=== PATIENT | female | born 1945 | race Caucasian/White ===

== ENCOUNTER 2018-08-12 01:31 | Inpatient (IN) | payer MEDICARE, MEDICAID ==
[~2018-08-12] VITALS: Ht 162.6 cm; Wt 88.0 kg
[2018-08-12] MEDS ORDERED: DOXE25CA PO (01:50)
[2018-08-12] MEDS ORDERED: DOCU-109 PO (01:50)
[2018-08-12] MEDS ORDERED: CHOL500021 PO (01:50)
[2018-08-12] MEDS ORDERED: OLAN2.5T11 PO (01:50)
[2018-08-12] MEDS ORDERED: ZOLP10TA PO (01:50)
[2018-08-12] MEDS ORDERED: CELE200C PO (01:50)
[2018-08-12] MEDS ORDERED: FLUO10CA13 PO (01:50)
[2018-08-12] MEDS ORDERED: ALEN70TA6 PO (01:50)
[2018-08-12] MEDS ORDERED: ASPI325T8 PO (01:50)
[2018-08-12] MEDS ORDERED: FERR325T14 PO (01:50)
[2018-08-12] MEDS ORDERED: OXYC5TAB4 PO (01:56)
[2018-08-12] MEDS ORDERED: LORazepam 0.5 MG TABLET PO PRN (02:00)
[2018-08-12] MEDS ORDERED: METHYL SALICYLATE/MENTHOL TOPICAL OINTMENT 29GM TUBE. TP PRN (02:00)
[2018-08-12] MEDS ORDERED: ACETAMINOPHEN 325 MG TABLET PO PRN (02:00)
[2018-08-12] MEDS ORDERED: MAG HYDROX/AL HYDROX/SIMETH 30 ML ORAL.SUSP PO PRN (02:00)
[2018-08-12] MEDS ORDERED: MAGNESIUM HYDROXIDE 2,400 MG/30 ML ORAL.SUSP. PO PRN (02:00)
[2018-08-12 02:05] VITALS: BP 137/103
[2018-08-12] MEDS: oxyCODONE IR 5 MG TABLET PO PRN ×4 (02:13→20:31)
[2018-08-12] MEDS ORDERED: ZOLPIDEM 5 MG TABLET. PO PRN (02:15)
[2018-08-12] MEDS ORDERED: MINE3.5O29 OP (02:47)
[2018-08-12 07:20] LABS: ALBUMIN 3.4 g/dL (3.4-5.0); ALBUMIN/GLOBULIN RATIO 0.8 (1.0-1.7); CALCIUM 8.6 mg/dL (8.5-10.1); CREATININE 1.1 mg/dL (0.6-1.0); GFR 48.7; MAGNESIUM 1.9 mg/dL (1.8-2.4); POTASSIUM 4.1 mmol/L (3.5-5.1); TOTAL BILIRUBIN 0.4 mg/dL (0.2-1.0); TOTAL PROTEIN 7.6 g/dL (6.4-8.2)
[2018-08-12 07:24] LABS: BASO % 1 % (0-3); EOS # 0.1 x10^3/uL (0.0-0.7); EOS % 2 % (0-3); HEMATOCRIT 34.2 % (36.0-47.0); HEMOGLOBIN 11.2 g/dL (12.0-15.5); LYMPH # 1.5 x10^3/uL (1.0-4.8); LYMPH % 29 % (24-48); MEAN CORPUSCULAR HEMOGLOBIN 30 pg (25-35); MEAN CORPUSCULAR HGB CONC 33 g/dL (31-37); MEAN CORPUSCULAR VOLUME 93 fL (79-100); MONO # 0.5 x10^3/uL (0.0-1.1); MONO % 9 % (0-9); NEUT % 58 % (31-73); PLATELET COUNT 282 x10^3/uL (140-400); RED BLOOD COUNT 3.69 x10^6/uL (3.50-5.40); RED CELL DISTRIBUTION WIDTH 17.7 % (11.5-14.5); WHITE BLOOD COUNT 5.1 x10^3/uL (4.0-11.0)
[2018-08-12] MEDS: CELECOXIB 100 MG CAPSULE PO SCH ×3 (08:15→20:47)
[2018-08-12] MEDS: FLUoxetine HCL 10 MG CAPSULE PO SCH (08:16)
[2018-08-12] MEDS: ASPIRIN 325 MG TABLET PO SCH ×2 (08:16→08:25)
[2018-08-12] MEDS: FERROUS SULFATE 325 MG TABLET. PO SCH ×3 (08:16→20:47)
[2018-08-12] MEDS: DOCUSATE SODIUM 100 MG CAPSULE PO SCH ×4 (08:16→20:47)
[2018-08-12] MEDS ORDERED: DOXEPIN HCL 25 MG CAPSULE PO SCH (09:00)
[2018-08-12 10:16] LABS: THYROID STIM HORMONE (TSH) 1.467 uIU/mL (0.358-3.740)
[2018-08-12 11:10] LABS: THYROXINE 4.7 ug/dL (4.5-12.0)
[2018-08-12 15:33] VITALS: BP 127/81
[2018-08-12] MEDS: OLANZapine 2.5 MG TABLET PO SCH (19:38)
[2018-08-12] MEDS: ZOLPIDEM 5 MG TABLET. PO SCH (20:31)
[2018-08-12] MEDS: DOXEPIN HCL 25 MG CAPSULE PO SCH (20:31)
[2018-08-12] MEDS ORDERED: DOCUSATE SODIUM 100 MG CAPSULE PO PRN (21:00)
[2018-08-12] MEDS: ZOLPIDEM 5 MG TABLET. PO PRN (21:24)
--- NOTE | 2018-08-12 21:53 | PDOC ---
Exam Note: Niko Note: Please also refer to the separate dictated note~for this date of service dictated separately.~Patient seen individually. Discussed the patient with Nursing staff reviewed the chart.~Reviewed interim history and current functioning. Reviewed vital signs,~Labs/ Radiology~and current medications noted below. Continue current treatment with the changes noted in the dictated addendum note Assessment: Vital Signs: Vital Signs Date Time Temp Pulse Resp B/P (MAP) Pulse Ox O2 Delivery O2 Flow Rate FiO2 08/12/18 20:31 97 08/12/18 15:33 97.1 66 18 127/81 (96) 08/12/18 03:25 Room Air Labs: Laboratory Tests Test 08/12/18 06:37 White Blood Count 5.1 x10^3/uL (4.0-11.0) Red Blood Count 3.69 x10^6/uL (3.50-5.40) Hemoglobin 11.2 g/dL (12.0-15.5) L Hematocrit 34.2 % (36.0-47.0) L Mean Corpuscular Volume 93 fL (79-100) Mean Corpuscular Hemoglobin 30 pg (25-35) Mean Corpuscular Hemoglobin Concent 33 g/dL (31-37) Red Cell Distribution Width 17.7 % (11.5-14.5) H Platelet Count 282 x10^3/uL (140-400) Neutrophils (%) (Auto) 58 % (31-73) Lymphocytes (%) (Auto) 29 % (24-48) Monocytes (%) (Auto) 9 % (0-9) Eosinophils (%) (Auto) 2 % (0-3) Basophils (%) (Auto) 1 % (0-3) Neutrophils # (Auto) 3.0 x10^3uL (1.8-7.7) Lymphocytes # (Auto) 1.5 x10^3/uL (1.0-4.8) Monocytes # (Auto) 0.5 x10^3/uL (0.0-1.1) Eosinophils # (Auto) 0.1 x10^3/uL (0.0-0.7) Basophils # (Auto) 0.0 x10^3/uL (0.0-0.2) Sodium Level 141 mmol/L (136-145) Potassium Level 4.1 mmol/L (3.5-5.1) Chloride Level 106 mmol/L (98-107) Carbon Dioxide Level 25 mmol/L (21-32) Anion Gap 10 (6-14) Blood Urea Nitrogen 19 mg/dL (7-20) Creatinine 1.1 mg/dL (0.6-1.0) H Estimated GFR (Cockcroft-Gault) 48.7 BUN/Creatinine Ratio 17 (6-20) Glucose Level 107 mg/dL (70-99) H Calcium Level 8.6 mg/dL (8.5-10.1) Magnesium Level 1.9 mg/dL (1.8-2.4) Iron Level 106 ug/dL (50-170) Total Iron Binding Capacity 288 ug/dL (250-450) Iron Saturation 37 % (15-34) H Total Bilirubin 0.4 mg/dL (0.2-1.0) Aspartate Amino Transferase (AST) 20 U/L (15-37) Alanine Aminotransferase (ALT) 15 U/L (14-59) Alkaline Phosphatase 82 U/L (46-116) Total Protein 7.6 g/dL (6.4-8.2) Albumin 3.4 g/dL (3.4-5.0) Albumin/Globulin Ratio 0.8 (1.0-1.7) L Triglycerides Level 62 mg/dL (0-150) Cholesterol Level 182 mg/dL (0-200) LDL Cholesterol, Calculated 109 mg/dL (0-100) H VLDL Cholesterol, Calculated 12 mg/dL (0-40) Non-HDL Cholesterol Calculated 121 mg/dL (0-129) HDL Cholesterol 61 mg/dL (40-60) H Cholesterol/HDL Ratio 2.0 Thyroid Stimulating Hormone (TSH) 1.467 uIU/mL (0.358-3.740) Thyroxine (T4) 4.7 ug/dL (4.5-12.0) Total Triiodothyronine (TT3) 80 ng/dL (71-180) Current Medications: Meds: Current Medications Acetaminophen (Tylenol) 650 mg PRN Q6HRS PRN PO PAIN / TEMP; Start 08/12/18 at 02:00 Multi-Ingredient Ointment (Analgesic [place]) 1 nicolas PRN QID PRN TP MUSCLE PAIN; Start 08/12/18 at 02:00 Al Hydroxide/Mg Hydroxide (Mylanta Plus Xs) 15 ml PRN AFTMEALHC PRN PO DYSPEPSIA; Start 08/12/18 at 02:00 Magnesium Hydroxide (Milk Of Magnesia) 2,400 mg PRN QHS PRN PO CONSTIPATION; Start 08/12/18 at 02:00 Aspirin (Madina Aspirin) 325 mg DAILY PO ; Start 08/12/18 at 09:00 Vitamin D (Vitamin D3) 50,000 unit WEEKLY PO ; Start 08/14/18 at 09:00 Ferrous Sulfate (Feosol) 325 mg BID PO Last administered on 08/12/18at 08:16; Start 08/12/18 at 09:00 Oxycodone HCl (Roxicodone) 15 mg PRN Q6HRS PRN PO PAIN Last administered on 08/12at 20:31; Start 08/12/18 at 02:00 Alendronate Sodium (Fosamax) 70 mg WEEKLY PO ; Start 08/14/18 at 06:00 Celecoxib (CeleBREX) 200 mg BID PO Last administered on 08/12/18at 08:15; Start 08/12/18 at 09:00 Docusate Sodium (Colace) 100 mg BID PO ; Start 08/12/18 at 09:00; Stop 08/12/18 at 20:49; Status DC Doxepin HCl (SINEquan) 25 mg DAILY PO ; Start 08/12/18 at 09:00; Stop 08/12/18 at 20:49; Status DC Lorazepam (Ativan) 0.25 mg PRN Q2HR PRN PO ANXIETY / AGITATION; Start 08/12/18 at 02:00 Fluoxetine HCl (PROzac) 10 mg DAILY PO Last administered on 08/12/18at 08:16; Start 08/12/18 at 09:00 Olanzapine (ZyPREXA) 2.5 mg QHS PO Last administered on 08/12/18at 19:38; Start 08/12/18 at 21:00 Zolpidem Tartrate (Ambien) 5 mg PRN QHS PRN PO INSOMNIA, MAY REPEAT X1; Start 08/12/18 at 02:15; Stop 08/12/18 at 20:22; Status DC Multi-Ingred Cream/Lotion/Oil/ Oint (Artificial Tears Eye Ointment) 1 nicolas PRN QHS PRN OU DRY EYE; Start 08/12/18 at 03:00 Zolpidem Tartrate (Ambien) 5 mg HS PO Last administered on 08/12/18 20:31; Start 08/12/18 at 21:00 Doxepin HCl (SINEquan) 25 mg QHS PO Last administered on 08/12/18 20:31; Start 08/12/18 at 21:00 Zolpidem Tartrate (Ambien) 5 mg PRN QHS PRN PO CONTINUED INSOMNIA Last administered on 08/12/18 21:24; Start 08/12/18 at 20:30 Docusate Sodium (Colace) 100 mg PRN BID PRN PO CONSTIPATION; Start 08/12/18 at 21:00 Active Scripts Active Reported Lubricant Eye Ointment (Mineral Oil/Petrolatum,White) 3.5 Gm Oint...g. 3.5 Gm OP PRN QHS PRN Oxycodone Hcl Immed.release (Oxycodone Hcl) 5 Mg Tablet 15 Mg PO PRN Q6HRS PRN Ambien (Zolpidem Tartrate) 10 Mg Tablet 10 Mg PO PRN QHS PRN Olanzapine 2.5 Mg Tablet 2.5 Mg PO QHS Prozac (Fluoxetine Hcl) 10 Mg Capsule 10 Mg PO DAILY Ferrous Sulfate 325 Mg Tablet 325 Mg PO BID Doxepin Hcl 25 Mg Capsule 25 Mg PO DAILY Colace (Docusate Sodium) 100 Mg Capsule 100 Mg PO BID D3-50 (Cholecalciferol (Vitamin D3)) 50,000 Unit Capsule 50,000 Unit PO WEEKLY Celebrex (Celecoxib) 200 Mg Capsule 200 Mg PO BID Aspirin 325 Mg Tablet 325 Mg PO DAILY Alendronate Sodium 70 Mg Tablet 70 Mg PO WEEKLY I have reviewed the current psychotropics carefully including drug interactions. Risk benefit ratio favors no change other than as noted in my dictated progress note. Diagnosis: Problems: (1) Anxiety disorder (2) Major depressive disorder, recurrent episode (3) Impulse control disorder LOKESH TUCKER MD Aug 12, 2018 21:53
[2018-08-13] MEDS: oxyCODONE IR 5 MG TABLET PO PRN ×4 (03:54→22:34)
[2018-08-13 05:35] LABS: HEMOGLOBIN A1C 5.3 % (4.8-5.6)
[2018-08-13 06:00] VITALS: BP 102/58
[2018-08-13] MEDS: ASPIRIN 325 MG TABLET PO SCH (08:48)
[2018-08-13] MEDS: FERROUS SULFATE 325 MG TABLET. PO SCH ×3 (08:48→22:09)
[2018-08-13] MEDS: CELECOXIB 100 MG CAPSULE PO SCH ×2 (08:49→21:29)
[2018-08-13] MEDS: FLUoxetine HCL 10 MG CAPSULE PO SCH (08:49)
--- NOTE | 2018-08-13 14:27 | HP ---
ADMIT DATE: 08/12/2018 PSYCHIATRIC ADMISSION HISTORY/EVALUATION IDENTIFYING DATA: The patient is a 73-year-old female referred to us from [facility] where she presented from home with worsening symptoms of depression with suicidal ideation with a plan to walk into traffic or "pay someone to kill her." The patient has failed outpatient psychiatric interventions. The patient lives alone at home in her apartment and rather rough neighborhood and is totally frustrated with her financial insecurity and living arrangements, and states she has been getting progressively more depressed, hopeless, helpless, worthless with a plan to end her life, thus prompting her visit to the Emergency Room and then a referral to us for inpatient psychiatric stabilization. CHIEF COMPLAINT: "I cannot go on like this." HISTORY OF PRESENT ILLNESS: The patient has a long history of depression and past psychiatric hospitalization at [facility]. She states she lives in an apartment at [facility], which was a very rough neighborhood, but that is the only place she can afford to live on her rent of about $350 a month. She states she does not have a car because she cannot afford it, even though she can drive. The patient states she takes public transportation to get her groceries and even that is difficult to obtain, especially given the subzero temperatures in the area. She admits to significant insomnia, feeling hopeless, helpless, worthless, some paranoia. She admits to the above suicidal ideation. No active homicidal ideation. No clear history of bipolar disorder, though she does have a history of mood swings. PAST PSYCHIATRIC HISTORY: She has been inpatient at [facility] and was seen outpatient at the [facility] intermittently. PAST MEDICAL HISTORY: Positive for hypertension, back pain, osteoarthritis, anemia, osteopenia, chronic pain, history of cerebrovascular disease, CVA, CHF, bilateral knee replacement. DRUG ALLERGIES: CLEOCIN, CLINDAMYCIN PHOSPHATE, KEFLEX AND SULFA. FAMILY HISTORY: Noncontributory. SOCIAL HISTORY: The patient states she is single. She states she has 2 master's degrees from the [employer]. The details are unclear. 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 No alcohol or drug abuse history. She states after she completed her education [place] helping take care of her mother who is rather elderly. She has 1 sister who lives out of state and the patient has no contact with the sister. No alcohol or drug abuse, physical, sexual or elder abuse history is noted. She is not known to be a perpetrator. REACTION TO HOSPITALIZATION: The patient accepting of it. ASSETS: Cognitively reasonably intact and intelligent. MENTAL STATUS EXAM: The patient was seen individually on the evening of 08/12/2018. She is quite verbal, open, forthcoming. Mood is depressed. Admits to feeling hopeless, helpless, worthless. Attention span short. Language function intact. Affect is mood congruent. Intellect average. Insight fair. Judgment intact to standard questioning. She denied active suicidal ideation when I questioned her during my initial interview on 08/12/2018. IMPRESSION: Major depressive disorder, recurrent; anxiety disorder, unspecified; rule out bipolar disorder, unspecified. Rest as above. PLAN: Admit to Gerops[facility]iatry Unit at [facility]. I will see the patient daily individually from a psychiatric standpoint, medical followup with Dr. Foote. Continue the patient on her current regimen. She states she was on Ambien 20 mg at bedtime and would like this. I had discussion with her, Ambien maximum should be 10 mg at bedtime and she states doxepin has helped her in the past and we will start 25 mg p.o. at bedtime. She is on fluoxetine 10 mg a day, which we will continue; Zyprexa 2.5 mg at bedtime, which we will continue as well. We will obtain past psychiatric records from [facility]. Further decisions on treatment will be made post baseline assessment. MAN Natalia TUCKER MD DR: GREG/kyle JOB#: [id number] / [id number]
[2018-08-13 16:06] VITALS: BP 127/81
--- NOTE | 2018-08-13 19:53 | CONS ---
DATE OF CONSULTATION: 08/13/2018 REASON FOR CONSULTATION: Medical management. HISTORY OF PRESENT ILLNESS: The patient is a 73-year-old female patient who was admitted on account of having a plan to walk into traffic and/or pay someone to kill her. She apparently has longstanding depression and according to her, she has always this suicidal ideation, although currently she does not have any plan to commit one. She has been followed by multiple psychiatrist and apparently she was actually in the list for electroconvulsive therapy at one point in time. PAST MEDICAL HISTORY: Significant for hypertension, chronic back pain, generalized osteoarthritis, and anemia as well as osteopenia and chronic pain. PAST SURGICAL HISTORY: Significant for bilateral total knee arthroplasty. ALLERGIES: SHE IS ALLERGIC TO SULFA, CEPHALEXIN AND CLINDAMYCIN. MEDICATIONS: She is currently on following medications: She is on ferrous sulfate 325 mg twice a day, aspirin 325 mg once a day. She is on Celebrex 200 mg twice a day, oxycodone 15 mg every 6 hours, doxepin 25 mg daily, Prozac 10 mg once a day, olanzapine 2.5 mg at bedtime, Ambien she stated that she was on 20 mg at bedtime. She is also on Colace 100 mg twice a day, cholecalciferol 50,000 international units once a week, and alendronate sodium 70 mg once a week. FAMILY HISTORY: Unremarkable. SOCIAL HISTORY: She apparently lives alone. She is a teacher. She does not smoke, drink alcohol or use any recreational drugs. REVIEW OF SYSTEMS: The patient denied any blurring of vision, cataract, glaucoma or macular degeneration. Denied any earache, tinnitus or sensorineural deafness. Denied any nosebleeds, stuffy nose. No postnasal drip. Denied any sore throat, sore tongue, toothache, hoarseness of voice or difficulty swallowing. She denied any nausea, vomiting, diarrhea or constipation. Denied any hematemesis, melena or hematochezia. Denied any dysuria, frequency or hematuria. Denied any chest pain, shortness of breath, orthopnea or paroxysmal nocturnal dyspnea. Denied any cough, phlegm or hemoptysis. PHYSICAL EXAMINATION: GENERAL: When I examined her, she was resting slightly propped up in bed, in no apparent respiratory distress, slightly pale, but no jaundice, cyanosis, or thyromegaly. No jugular venous distension. No limb edema. VITAL SIGNS: Her heart rate was 64, blood pressure 102/58, temperature was 97.9, respiratory rate was 18 and oxygen saturation was 96% on room air. HEAD, EYES, EARS, NOSE AND THROAT: Showed normocephalic, atraumatic. NECK: Supple. HEART: Showed normal first and second sounds. No gallop, rub or murmur. CHEST: Clear to auscultation. No crepitation or rhonchi. ABDOMEN: Slightly distended, soft, nontender. NEUROLOGIC: She was awake, alert, responding appropriately. All cranial nerves are intact. EXTREMITIES: She moves extremities without difficulty. She ambulates with a walker. LABORATORY DATA: Showed a white cell count 5100, hemoglobin 11, hematocrit 34, MCV 93, and platelet count 282,000. Her serum sodium was 141, potassium 4.1, chloride 106, bicarbonate 25, anion gap of 10, BUN 19, creatinine 1.1. Her estimated GFR was 48 mL per minute. Her glucose 107. Hemoglobin A1c was 5.3. Calcium was 8.6, magnesium was 1.9. Her serum iron was 106, TIBC was 288 and iron saturation was 37%. Total bilirubin, AST, ALT, alkaline phosphatase were normal. Total protein was 7.6, albumin 3.4. Her serum triglycerides were 62, total cholesterol 182, LDL was 109, VLDL was 12, and HDL cholesterol was 61 with a ratio of 2. Her TSH was normal at 1.467. Her total T4 and total T3 are within normal range. IMPRESSION: In summary, this is a 73-year-old female patient who was admitted on account of suicidal ideation with a plan to walk into traffic or pay someone to kill her. All this in a background of major depressive disorder. Medically, she is known to have hypertension, chronic back pain, osteoarthritis, osteoporosis and anemia. All in all, her vital signs seem to be stable. All her lab work seems to be within acceptable range. I have reviewed all her medications seem to be appropriate. I will follow all her lab work that are still pending at the time of this dictation and make any necessary recommendation. Thank you, Dr. Marquez for allowing me to participate in the care of this patient. RUPINDER ESPINOZA MD DR: GIOVANNI/kyle JOB#: [id number] / [id number]
[2018-08-13] MEDS: OLANZapine 2.5 MG TABLET PO SCH (21:29)
[2018-08-13] MEDS: ZOLPIDEM 5 MG TABLET. PO SCH (21:29)
[2018-08-13] MEDS: DOXEPIN HCL 25 MG CAPSULE PO SCH (21:30)
[2018-08-13] MEDS: MINERAL OIL/PETROLATUM,WHITE OPHTH OINT 3.5GM TUBE. OU PRN (22:34)
[2018-08-13] MEDS: ZOLPIDEM 5 MG TABLET. PO PRN (22:34)
--- NOTE | 2018-08-13 22:40 | PDOC ---
Exam Note: Niko Note: Please also refer to the separate dictated note~for this date of service dictated separately.~Patient seen individually. Discussed the patient with Nursing staff reviewed the chart.~Reviewed interim history and current functioning. Reviewed vital signs,~Labs/ Radiology~and current medications noted below. Continue current treatment with the changes noted in the dictated addendum note Assessment: Vital Signs: Vital Signs Date Time Temp Pulse Resp B/P (MAP) Pulse Ox O2 Delivery O2 Flow Rate FiO2 08/13/18 18:08 100 08/13/18 16:06 98.5 80 20 127/81 (96) 08/12/18 03:25 Room Air I&O Intake and Output 08/13/18 07:00 Intake Total 1320 ml Balance 1320 ml Intake Oral 1320 ml Current Medications: Meds: Current Medications Acetaminophen (Tylenol) 650 mg PRN Q6HRS PRN PO PAIN / TEMP; Start 08/12/18 at 02:00 Multi-Ingredient Ointment (Analgesic [place]) 1 nicolas PRN QID PRN TP MUSCLE PAIN; Start 08/12/18 at 02:00 Al Hydroxide/Mg Hydroxide (Mylanta Plus Xs) 15 ml PRN AFTMEALHC PRN PO DYSPEPSIA; Start 08/12/18 at 02:00 Magnesium Hydroxide (Milk Of Magnesia) 2,400 mg PRN QHS PRN PO CONSTIPATION; Start 08/12/18 at 02:00 Aspirin (Madina Aspirin) 325 mg DAILY PO Last administered on 08/13/18at 08:48; Start 08/12/18 at 09:00 Vitamin D (Vitamin D3) 50,000 unit WEEKLY PO ; Start 08/14/18 at 09:00 Ferrous Sulfate (Feosol) 325 mg BID PO Last administered on 08/13/18at 08:48; Start 08/12/18 at 09:00 Oxycodone HCl (Roxicodone) 15 mg PRN Q6HRS PRN PO PAIN Last administered on 08/13at 22:34; Start 08/12/18 at 02:00 Alendronate Sodium (Fosamax) 70 mg WEEKLY PO ; Start 08/14/18 at 06:00 Celecoxib (CeleBREX) 200 mg BID PO Last administered on 08/13/18at 21:29; Start 08/12/18 at 09:00 Docusate Sodium (Colace) 100 mg BID PO ; Start 08/12/18 at 09:00; Stop 08/12/18 at 20:49; Status DC Doxepin HCl (SINEquan) 25 mg DAILY PO ; Start 08/12/18 at 09:00; Stop 08/12/18 at 20:49; Status DC Lorazepam (Ativan) 0.25 mg PRN Q2HR PRN PO ANXIETY / AGITATION; Start 08/12/18 at 02:00 Fluoxetine HCl (PROzac) 10 mg DAILY PO Last administered on 08/13/18at 08:49; Start 08/12/18 at 09:00 Olanzapine (ZyPREXA) 2.5 mg QHS PO Last administered on 08/13/18 21:29; Start 08/12/18 at 21:00 Zolpidem Tartrate (Ambien) 5 mg PRN QHS PRN PO INSOMNIA, MAY REPEAT X1; Start 08/12/18 at 02:15; Stop 08/12/18 at 20:22; Status DC Multi-Ingred Cream/Lotion/Oil/ Oint (Artificial Tears Eye Ointment) 1 nicolas PRN QHS PRN OU DRY EYE Last administered on 08/13/18 22:34; Start 08/12/18 at 03:00 Zolpidem Tartrate (Ambien) 5 mg HS PO Last administered on 08/13/18 21:29; Start 08/12/18 at 21:00 Doxepin HCl (SINEquan) 25 mg QHS PO Last administered on 08/13/18 21:30; Start 08/12/18 at 21:00 Zolpidem Tartrate (Ambien) 5 mg PRN QHS PRN PO CONTINUED INSOMNIA Last administered on 08/13/18 22:34; Start 08/12/18 at 20:30 Docusate Sodium (Colace) 100 mg PRN BID PRN PO CONSTIPATION; Start 08/12/18 at 21:00 Active Scripts Active Reported Lubricant Eye Ointment (Mineral Oil/Petrolatum,White) 3.5 Gm Oint...g. 3.5 Gm OP PRN QHS PRN Oxycodone Hcl Immed.release (Oxycodone Hcl) 5 Mg Tablet 15 Mg PO PRN Q6HRS PRN Ambien (Zolpidem Tartrate) 10 Mg Tablet 10 Mg PO PRN QHS PRN Olanzapine 2.5 Mg Tablet 2.5 Mg PO QHS Prozac (Fluoxetine Hcl) 10 Mg Capsule 10 Mg PO DAILY Ferrous Sulfate 325 Mg Tablet 325 Mg PO BID Doxepin Hcl 25 Mg Capsule 25 Mg PO DAILY Colace (Docusate Sodium) 100 Mg Capsule 100 Mg PO BID D3-50 (Cholecalciferol (Vitamin D3)) 50,000 Unit Capsule 50,000 Unit PO WEEKLY Celebrex (Celecoxib) 200 Mg Capsule 200 Mg PO BID Aspirin 325 Mg Tablet 325 Mg PO DAILY Alendronate Sodium 70 Mg Tablet 70 Mg PO WEEKLY I have reviewed the current psychotropics carefully including drug interactions. Risk benefit ratio favors no change other than as noted in my dictated progress note. Diagnosis: Problems: (1) Anxiety disorder (2) Major depressive disorder, recurrent episode (3) Impulse control disorder LOKESH TUCKER MD Aug 13, 2018 22:40
[2018-08-14] MEDS: ALENDRONATE SODIUM 35 MG TABLET PO SCH (05:21)
[2018-08-14] MEDS: oxyCODONE IR 5 MG TABLET PO PRN ×4 (05:22→23:46)
[2018-08-14 05:44] VITALS: BP 102/66
[2018-08-14] MEDS: ASPIRIN 325 MG TABLET PO SCH (08:28)
[2018-08-14] MEDS: FLUoxetine HCL 10 MG CAPSULE PO SCH (08:29)
[2018-08-14] MEDS: FERROUS SULFATE 325 MG TABLET. PO SCH (08:29)
[2018-08-14] MEDS: CELECOXIB 100 MG CAPSULE PO SCH ×2 (08:29→19:57)
[2018-08-14] MEDS: CHOLECALCIFEROL (VITAMIN D3) 50,000 UNIT CAPSULE PO SCH (08:30)
[2018-08-14 16:11] VITALS: BP 142/82
[2018-08-14] MEDS: OLANZapine 2.5 MG TABLET PO SCH (19:57)
[2018-08-14] MEDS: DOXEPIN HCL 25 MG CAPSULE PO SCH (19:58)
[2018-08-14] MEDS: ZOLPIDEM 5 MG TABLET. PO SCH (19:58)
--- NOTE | 2018-08-14 21:22 | PN ---
DATE: 08/13/2018 PSYCHIATRIC PROGRESS NOTE This late entry 08/13/2018 covers elements not covered in my initial note. SUBJECTIVE: I met with the patient at some length in her room individually. She slept 5-3/4 hours previous night. She states she always had fleeting suicidal ideation, no plans or intent. She states much of the suicidality emanates from her social situation, the neighborhood, she lives in, which is rather poor and having to take public transportation and this is within the context of her average IQ with 2 master's level education from the [employer]. REVIEW OF SYSTEMS: No CV, , pulmonary, eye system symptoms on review. MENTAL STATUS EXAM: Reasonably oriented. Speech is coherent, abstraction fair, computation impaired, language function intact. Mood and affect somewhat depressed. Slept better. LABORATORY DATA: Reviewed. IMPRESSION: Major depressive disorder, recurrent insomnia. PLAN: Continue current psychotropics, doxepin, Ambien along with Prozac and Zyprexa. MAN Natalia TUCKER MD DR: GREG/kyle JOB#: [id number] / [id number]
[2018-08-14] MEDS: ZOLPIDEM 5 MG TABLET. PO PRN (21:51)
--- NOTE | 2018-08-14 22:32 | PDOC ---
Exam Note: Niko Note: Please also refer to the separate dictated note~for this date of service dictated separately.~Patient seen individually. Discussed the patient with Nursing staff reviewed the chart.~Reviewed interim history and current functioning. Reviewed vital signs,~Labs/ Radiology~and current medications noted below. Continue current treatment with the changes noted in the dictated addendum note Assessment: Vital Signs: Vital Signs Date Time Temp Pulse Resp B/P (MAP) Pulse Ox O2 Delivery O2 Flow Rate FiO2 08/14/18 19:10 92 08/14/18 17:45 18 08/14/18 16:11 98.1 60 142/82 (102) 08/12/18 03:25 Room Air I&O Intake and Output 08/14/18 07:00 Intake Total 1320 ml Balance 1320 ml Intake Oral 1320 ml Current Medications: Meds: Current Medications Acetaminophen (Tylenol) 650 mg PRN Q6HRS PRN PO PAIN / TEMP; Start 08/12/18 at 02:00 Multi-Ingredient Ointment (Analgesic [place]) 1 nicolas PRN QID PRN TP MUSCLE PAIN; Start 08/12/18 at 02:00 Al Hydroxide/Mg Hydroxide (Mylanta Plus Xs) 15 ml PRN AFTMEALHC PRN PO DYSPEPSIA; Start 08/12/18 at 02:00 Magnesium Hydroxide (Milk Of Magnesia) 2,400 mg PRN QHS PRN PO CONSTIPATION; Start 08/12/18 at 02:00 Aspirin (Madina Aspirin) 325 mg DAILY PO Last administered on 08/14/18at 08:28; Start 08/12/18 at 09:00 Vitamin D (Vitamin D3) 50,000 unit WEEKLY PO Last administered on 08/14/18at 08: 30; Start 08/14/18 at 09:00 Ferrous Sulfate (Feosol) 325 mg BID PO Last administered on 08/14/18at 08:29; Start 08/12/18 at 09:00; Stop 08/14/18 at 16:39; Status DC Oxycodone HCl (Roxicodone) 15 mg PRN Q6HRS PRN PO PAIN Last administered on 08/14at 17:45; Start 08/12/18 at 02:00 Alendronate Sodium (Fosamax) 70 mg WEEKLY PO Last administered on 08/14/18at 05: 21; Start 08/14/18 at 06:00 Celecoxib (CeleBREX) 200 mg BID PO Last administered on 08/14/18 19:57; Start 08/12/18 at 09:00 Docusate Sodium (Colace) 100 mg BID PO ; Start 08/12/18 at 09:00; Stop 08/12/18 at 20:49; Status DC Doxepin HCl (SINEquan) 25 mg DAILY PO ; Start 08/12/18 at 09:00; Stop 08/12/18 at 20:49; Status DC Lorazepam (Ativan) 0.25 mg PRN Q2HR PRN PO ANXIETY / AGITATION; Start 08/12/18 at 02:00 Fluoxetine HCl (PROzac) 10 mg DAILY PO Last administered on 08/14/18 08:29; Start 08/12/18 at 09:00; Stop 08/14/18 at 19:12; Status DC Olanzapine (ZyPREXA) 2.5 mg QHS PO Last administered on 08/14/18 19:57; Start 08/12/18 at 21:00 Zolpidem Tartrate (Ambien) 5 mg PRN QHS PRN PO INSOMNIA, MAY REPEAT X1; Start 08/12/18 at 02:15; Stop 08/12/18 at 20:22; Status DC Multi-Ingred Cream/Lotion/Oil/ Oint (Artificial Tears Eye Ointment) 1 nicolas PRN QHS PRN OU DRY EYE Last administered on 08/13/18 22:34; Start 08/12/18 at 03:00 Zolpidem Tartrate (Ambien) 5 mg HS PO Last administered on 08/14/18 19:58; Start 08/12/18 at 21:00 Doxepin HCl (SINEquan) 25 mg QHS PO Last administered on 08/14/18 19:58; Start 08/12/18 at 21:00 Zolpidem Tartrate (Ambien) 5 mg PRN QHS PRN PO CONTINUED INSOMNIA Last administered on 08/14/18 21:51; Start 08/12/18 at 20:30 Docusate Sodium (Colace) 100 mg PRN BID PRN PO CONSTIPATION; Start 08/12/18 at 21:00 Ferrous Sulfate (Feosol) 325 mg DAILY PO ; Start 08/15/18 at 09:00 Fluoxetine HCl (PROzac) 20 mg DAILY PO ; Start 08/15/18 at 09:00 Active Scripts Active Reported Lubricant Eye Ointment (Mineral Oil/Petrolatum,White) 3.5 Gm Oint...g. 3.5 Gm OP PRN QHS PRN Oxycodone Hcl Immed.release (Oxycodone Hcl) 5 Mg Tablet 15 Mg PO PRN Q6HRS PRN Ambien (Zolpidem Tartrate) 10 Mg Tablet 10 Mg PO PRN QHS PRN Olanzapine 2.5 Mg Tablet 2.5 Mg PO QHS Prozac (Fluoxetine Hcl) 10 Mg Capsule 10 Mg PO DAILY Ferrous Sulfate 325 Mg Tablet 325 Mg PO BID Doxepin Hcl 25 Mg Capsule 25 Mg PO DAILY Colace (Docusate Sodium) 100 Mg Capsule 100 Mg PO BID D3-50 (Cholecalciferol (Vitamin D3)) 50,000 Unit Capsule 50,000 Unit PO WEEKLY Celebrex (Celecoxib) 200 Mg Capsule 200 Mg PO BID Aspirin 325 Mg Tablet 325 Mg PO DAILY Alendronate Sodium 70 Mg Tablet 70 Mg PO WEEKLY I have reviewed the current psychotropics carefully including drug interactions. Risk benefit ratio favors no change other than as noted in my dictated progress note. Diagnosis: Problems: (1) Anxiety disorder (2) Major depressive disorder, recurrent episode (3) Impulse control disorder LOKESH TUCKER MD Aug 14, 2018 22:32
[2018-08-15] MEDS: MINERAL OIL/PETROLATUM,WHITE OPHTH OINT 3.5GM TUBE. OU PRN (02:49)
[2018-08-15] MEDS: oxyCODONE IR 5 MG TABLET PO PRN ×3 (05:41→18:01)
[2018-08-15 05:49] VITALS: BP 115/76
[2018-08-15] MEDS: CELECOXIB 100 MG CAPSULE PO SCH ×2 (08:24→21:08)
[2018-08-15] MEDS: ASPIRIN 325 MG TABLET PO SCH ×2 (08:24→09:00)
[2018-08-15] MEDS: FERROUS SULFATE 325 MG TABLET. PO SCH (08:25)
[2018-08-15] MEDS: FLUoxetine HCL 20 MG CAPSULE PO SCH (08:25)
[2018-08-15 16:21] VITALS: BP 133/92
--- NOTE | 2018-08-15 18:27 | PN ---
DATE: 08/14/2018 PSYCHIATRIC PROGRESS NOTE This late entry 08/14/2018 covers elements not covered in my initial note. SUBJECTIVE: I met with the patient in the evening at some length in her room. Per nursing report, the patient slept 5-3/4 hours previous night. She has been somewhat withdrawn, depressed. Denies active suicidal ideation, but told the nursing staff nothing is changed about her situation psychosocially, living arrangements in [place] neighborhood and she does not expect her suicidal ideation to resolve till that is taken care of. Social service staff is meeting with the patient to help clarify some of the above. REVIEW OF SYSTEMS: Positive for some discomfort in her knee. No CV, , pulmonary, eye system symptoms on review. MENTAL STATUS EXAM: Oriented reasonably. Speech is coherent, abstraction fair, computation impaired, language function intact, attention span short. Mood and affect still somewhat depressed. LABORATORY DATA: Reviewed. IMPRESSION: Major depressive disorder, recurrent; anxiety disorder, unspecified. Rest unchanged from initial note. PLAN: Increase Prozac from 10 mg a day to 20 mg a day. Continue rest unchanged. I discussed the option of transcranial magnetic stimulation treatment as an outpatient with her. She had previously brought up the question of electroconvulsive therapy. Certainly some of this could be considered depending on how she responds to the psychotropic changes making as an inpatient. LOKESH TUCKER MD DR: GREG/kyle JOB#: [id number] / [id number]
[2018-08-15] MEDS: OLANZapine 2.5 MG TABLET PO SCH (21:08)
[2018-08-15] MEDS: ZOLPIDEM 5 MG TABLET. PO SCH (21:09)
[2018-08-15] MEDS: DOXEPIN HCL 25 MG CAPSULE PO SCH (21:09)
[2018-08-15] MEDS: ZOLPIDEM 5 MG TABLET. PO PRN (21:18)
--- NOTE | 2018-08-15 22:05 | PDOC ---
Exam Note: Niko Note: Please also refer to the separate dictated note~for this date of service dictated separately.~Patient seen individually. Discussed the patient with Nursing staff reviewed the chart.~Reviewed interim history and current functioning. Reviewed vital signs,~Labs/ Radiology~and current medications noted below. Continue current treatment with the changes noted in the dictated addendum note Assessment: Vital Signs: Vital Signs Date Time Temp Pulse Resp B/P (MAP) Pulse Ox O2 Delivery O2 Flow Rate FiO2 08/15/18 19:16 18 08/15/18 16:21 98.6 90 133/92 (106) 99 Room Air I&O Intake and Output 08/15/18 06:59 Intake Total 1200 ml Balance 1200 ml Intake Oral 1200 ml Current Medications: Meds: Current Medications Acetaminophen (Tylenol) 650 mg PRN Q6HRS PRN PO PAIN / TEMP; Start 08/12/18 at 02:00 Multi-Ingredient Ointment (Analgesic [place]) 1 nicolas PRN QID PRN TP MUSCLE PAIN; Start 08/12/18 at 02:00 Al Hydroxide/Mg Hydroxide (Mylanta Plus Xs) 15 ml PRN AFTMEALHC PRN PO DYSPEPSIA; Start 08/12/18 at 02:00 Magnesium Hydroxide (Milk Of Magnesia) 2,400 mg PRN QHS PRN PO CONSTIPATION; Start 08/12/18 at 02:00 Aspirin (Madina Aspirin) 325 mg DAILY PO Last administered on 08/14/18at 08:28; Start 08/12/18 at 09:00; Stop 08/15/18 at 18:33; Status DC Vitamin D (Vitamin D3) 50,000 unit WEEKLY PO Last administered on 08/14/18at 08: 30; Start 08/14/18 at 09:00 Ferrous Sulfate (Feosol) 325 mg BID PO Last administered on 08/14/18at 08:29; Start 08/12/18 at 09:00; Stop 08/14/18 at 16:39; Status DC Oxycodone HCl (Roxicodone) 15 mg PRN Q6HRS PRN PO PAIN Last administered on 08/15at 18:01; Start 08/12/18 at 02:00 Alendronate Sodium (Fosamax) 70 mg WEEKLY PO Last administered on 08/14/18at 05: 21; Start 08/14/18 at 06:00 Celecoxib (CeleBREX) 200 mg BID PO Last administered on 08/15/18 21:08; Start 08/12/18 at 09:00 Docusate Sodium (Colace) 100 mg BID PO ; Start 08/12/18 at 09:00; Stop 08/12/18 at 20:49; Status DC Doxepin HCl (SINEquan) 25 mg DAILY PO ; Start 08/12/18 at 09:00; Stop 08/12/18 at 20:49; Status DC Lorazepam (Ativan) 0.25 mg PRN Q2HR PRN PO ANXIETY / AGITATION; Start 08/12/18 at 02:00 Fluoxetine HCl (PROzac) 10 mg DAILY PO Last administered on 08/14/18 08:29; Start 08/12/18 at 09:00; Stop 08/14/18 at 19:12; Status DC Olanzapine (ZyPREXA) 2.5 mg QHS PO Last administered on 08/15/18 21:08; Start 08/12/18 at 21:00 Zolpidem Tartrate (Ambien) 5 mg PRN QHS PRN PO INSOMNIA, MAY REPEAT X1; Start 08/12/18 at 02:15; Stop 08/12/18 at 20:22; Status DC Multi-Ingred Cream/Lotion/Oil/ Oint (Artificial Tears Eye Ointment) 1 nicolas PRN QHS PRN OU DRY EYE Last administered on 08/15/18 02:49; Start 08/12/18 at 03:00 Zolpidem Tartrate (Ambien) 5 mg HS PO Last administered on 08/15/18 21:09; Start 08/12/18 at 21:00 Doxepin HCl (SINEquan) 25 mg QHS PO Last administered on 08/15/18 21:09; Start 08/12/18 at 21:00 Zolpidem Tartrate (Ambien) 5 mg PRN QHS PRN PO CONTINUED INSOMNIA Last administered on 08/15/18 21:18; Start 08/12/18 at 20:30 Docusate Sodium (Colace) 100 mg PRN BID PRN PO CONSTIPATION; Start 08/12/18 at 21:00 Ferrous Sulfate (Feosol) 325 mg DAILY PO Last administered on 3/5/19at 08:25; Start 08/15/18 at 09:00 Fluoxetine HCl (PROzac) 20 mg DAILY PO Last administered on 08/15/18at 08:25; Start 08/15/18 at 09:00 Aspirin (Children'S Aspirin) 81 mg DAILYWBKFT PO ; Start 08/16/18 at 08:00 Active Scripts Active Reported Lubricant Eye Ointment (Mineral Oil/Petrolatum,White) 3.5 Gm Oint...g. 3.5 Gm OP PRN QHS PRN Oxycodone Hcl Immed.release (Oxycodone Hcl) 5 Mg Tablet 15 Mg PO PRN Q6HRS PRN Ambien (Zolpidem Tartrate) 10 Mg Tablet 10 Mg PO PRN QHS PRN Olanzapine 2.5 Mg Tablet 2.5 Mg PO QHS Prozac (Fluoxetine Hcl) 10 Mg Capsule 10 Mg PO DAILY Ferrous Sulfate 325 Mg Tablet 325 Mg PO BID Doxepin Hcl 25 Mg Capsule 25 Mg PO DAILY Colace (Docusate Sodium) 100 Mg Capsule 100 Mg PO BID D3-50 (Cholecalciferol (Vitamin D3)) 50,000 Unit Capsule 50,000 Unit PO WEEKLY Celebrex (Celecoxib) 200 Mg Capsule 200 Mg PO BID Aspirin 325 Mg Tablet 325 Mg PO DAILY Alendronate Sodium 70 Mg Tablet 70 Mg PO WEEKLY I have reviewed the current psychotropics carefully including drug interactions. Risk benefit ratio favors no change other than as noted in my dictated progress note. Diagnosis: Problems: (1) Anxiety disorder (2) Major depressive disorder, recurrent episode (3) Impulse control disorder LOKESH TUCKER MD Aug 15, 2018 22:05
[2018-08-16] MEDS: oxyCODONE IR 5 MG TABLET PO PRN ×4 (02:15→21:55)
[2018-08-16 05:46] VITALS: BP 104/67
[2018-08-16] MEDS: CELECOXIB 100 MG CAPSULE PO SCH ×2 (08:38→20:25)
[2018-08-16] MEDS: FERROUS SULFATE 325 MG TABLET. PO SCH (08:38)
[2018-08-16] MEDS: FLUoxetine HCL 20 MG CAPSULE PO SCH (08:38)
[2018-08-16] MEDS: ASPIRIN 81 MG TAB.CHEW PO SCH (08:42)
[2018-08-16 16:15] VITALS: BP 145/79
--- NOTE | 2018-08-16 20:22 | PN ---
DATE: 08/15/2018 PSYCHIATRIC PROGRESS NOTE This late entry 08/15/2018 covers elements not covered in my initial note. SUBJECTIVE: I met with the patient in the evening. The patient slept 5 hours previous night. I met with her in her room at some length. She has been drug seeking for the oxycodone every 6 hours per nursing report, somewhat insistent. She still has vague suicidal ideation due to her psychosocial circumstances, financial problems, and I processed this with her. No active plans, intent, certainly no recent attempt. REVIEW OF SYSTEMS: Positive for the knee pain. No CV, , pulmonary, eye system symptoms on review. MENTAL STATUS EXAM: Reasonably oriented. Speech is coherent, abstraction fair, computation impaired, language function intact. Mood and affect somewhat depressed, anxious. She is concerned that $200 of paez she has brought in is missing. She is going to meet with Ronit, nurse branch general manager, on 08/16/2018 to address this and we processed this as well. Speech is otherwise coherent, abstraction fair, computation impaired. No active suicidal or homicidal ideation. LABORATORY DATA: Reviewed. IMPRESSION: Major depressive disorder, recurrent; anxiety disorder, unspecified. PLAN: Increase Prozac from 10 mg a day to 20 mg a day. Continue doxepin 25 mg at bedtime, Ambien p.r.n., Zyprexa 2.5 mg p.o. at bedtime as before. LOKESH TUCKER MD DR: GREG/kyle JOB#: [id number] / [id number]
[2018-08-16] MEDS: ZOLPIDEM 5 MG TABLET. PO SCH (20:25)
[2018-08-16] MEDS: OLANZapine 2.5 MG TABLET PO SCH (20:25)
[2018-08-16] MEDS: DOXEPIN HCL 25 MG CAPSULE PO SCH (20:26)
[2018-08-16] MEDS: ZOLPIDEM 5 MG TABLET. PO PRN (21:55)
--- NOTE | 2018-08-16 22:19 | PDOC ---
Exam Note: Niko Note: Please also refer to the separate dictated note~for this date of service dictated separately.~Patient seen individually. Discussed the patient with Nursing staff reviewed the chart.~Reviewed interim history and current functioning. Reviewed vital signs,~Labs/ Radiology~and current medications noted below. Continue current treatment with the changes noted in the dictated addendum note Assessment: Vital Signs: Vital Signs Date Time Temp Pulse Resp B/P (MAP) Pulse Ox O2 Delivery O2 Flow Rate FiO2 08/16/18 21:55 98 08/16/18 16:45 Room Air 08/16/18 16:15 98.3 76 16 145/79 (101) I&O Intake and Output 08/16/18 06:59 Intake Total 1080 ml Balance 1080 ml Intake Oral 1080 ml Current Medications: Meds: Current Medications Acetaminophen (Tylenol) 650 mg PRN Q6HRS PRN PO PAIN / TEMP; Start 08/12/18 at 02:00 Multi-Ingredient Ointment (Analgesic [place]) 1 nicolas PRN QID PRN TP MUSCLE PAIN; Start 08/12/18 at 02:00 Al Hydroxide/Mg Hydroxide (Mylanta Plus Xs) 15 ml PRN AFTMEALHC PRN PO DYSPEPSIA; Start 08/12/18 at 02:00 Magnesium Hydroxide (Milk Of Magnesia) 2,400 mg PRN QHS PRN PO CONSTIPATION; Start 08/12/18 at 02:00 Aspirin (Madina Aspirin) 325 mg DAILY PO Last administered on 08/14/18at 08:28; Start 08/12/18 at 09:00; Stop 08/15/18 at 18:33; Status DC Vitamin D (Vitamin D3) 50,000 unit WEEKLY PO Last administered on 08/14/18at 08: 30; Start 08/14/18 at 09:00 Ferrous Sulfate (Feosol) 325 mg BID PO Last administered on 08/14/18at 08:29; Start 08/12/18 at 09:00; Stop 08/14/18 at 16:39; Status DC Oxycodone HCl (Roxicodone) 15 mg PRN Q6HRS PRN PO PAIN Last administered on 08/16at 21:55; Start 08/12/18 at 02:00 Alendronate Sodium (Fosamax) 70 mg WEEKLY PO Last administered on 08/14/18at 05: 21; Start 08/14/18 at 06:00 Celecoxib (CeleBREX) 200 mg BID PO Last administered on 08/16/18 20:25; Start 08/12/18 at 09:00 Docusate Sodium (Colace) 100 mg BID PO ; Start 08/12/18 at 09:00; Stop 08/12/18 at 20:49; Status DC Doxepin HCl (SINEquan) 25 mg DAILY PO ; Start 08/12/18 at 09:00; Stop 08/12/18 at 20:49; Status DC Lorazepam (Ativan) 0.25 mg PRN Q2HR PRN PO ANXIETY / AGITATION; Start 08/12/18 at 02:00 Fluoxetine HCl (PROzac) 10 mg DAILY PO Last administered on 08/14/18 08:29; Start 08/12/18 at 09:00; Stop 08/14/18 at 19:12; Status DC Olanzapine (ZyPREXA) 2.5 mg QHS PO Last administered on 08/16/18 20:25; Start 08/12/18 at 21:00 Zolpidem Tartrate (Ambien) 5 mg PRN QHS PRN PO INSOMNIA, MAY REPEAT X1; Start 08/12/18 at 02:15; Stop 08/12/18 at 20:22; Status DC Multi-Ingred Cream/Lotion/Oil/ Oint (Artificial Tears Eye Ointment) 1 nicolas PRN QHS PRN OU DRY EYE Last administered on 08/15/18 02:49; Start 08/12/18 at 03:00 Zolpidem Tartrate (Ambien) 5 mg HS PO Last administered on 08/16/18 20:25; Start 08/12/18 at 21:00 Doxepin HCl (SINEquan) 25 mg QHS PO Last administered on 08/16/18 20:26; Start 08/12/18 at 21:00 Zolpidem Tartrate (Ambien) 5 mg PRN QHS PRN PO CONTINUED INSOMNIA Last administered on 08/16/18 21:55; Start 08/12/18 at 20:30 Docusate Sodium (Colace) 100 mg PRN BID PRN PO CONSTIPATION; Start 08/12/18 at 21:00 Ferrous Sulfate (Feosol) 325 mg DAILY PO Last administered on 08/16/18 08:38; Start 08/15/18 at 09:00 Fluoxetine HCl (PROzac) 20 mg DAILY PO Last administered on 08/16/18 08:38; Start 08/15/18 at 09:00 Aspirin (Children'S Aspirin) 81 mg DAILYWBKFT PO Last administered on 08/16/18at 08:42; Start 08/16/18 at 08:00 Active Scripts Active Reported Lubricant Eye Ointment (Mineral Oil/Petrolatum,White) 3.5 Gm Oint...g. 3.5 Gm OP PRN QHS PRN Oxycodone Hcl Immed.release (Oxycodone Hcl) 5 Mg Tablet 15 Mg PO PRN Q6HRS PRN Ambien (Zolpidem Tartrate) 10 Mg Tablet 10 Mg PO PRN QHS PRN Olanzapine 2.5 Mg Tablet 2.5 Mg PO QHS Prozac (Fluoxetine Hcl) 10 Mg Capsule 10 Mg PO DAILY Ferrous Sulfate 325 Mg Tablet 325 Mg PO BID Doxepin Hcl 25 Mg Capsule 25 Mg PO DAILY Colace (Docusate Sodium) 100 Mg Capsule 100 Mg PO BID D3-50 (Cholecalciferol (Vitamin D3)) 50,000 Unit Capsule 50,000 Unit PO WEEKLY Celebrex (Celecoxib) 200 Mg Capsule 200 Mg PO BID Aspirin 325 Mg Tablet 325 Mg PO DAILY Alendronate Sodium 70 Mg Tablet 70 Mg PO WEEKLY I have reviewed the current psychotropics carefully including drug interactions. Risk benefit ratio favors no change other than as noted in my dictated progress note. Diagnosis: Problems: (1) Anxiety disorder (2) Major depressive disorder, recurrent episode (3) Impulse control disorder LOKESH TUCKER MD Aug 16, 2018 22:19
[2018-08-17] MEDS: oxyCODONE IR 5 MG TABLET PO PRN ×4 (04:33→22:48)
[2018-08-17 06:06] VITALS: BP 130/80
[2018-08-17] MEDS: CELECOXIB 100 MG CAPSULE PO SCH ×2 (08:23→20:48)
[2018-08-17] MEDS: ASPIRIN 81 MG TAB.CHEW PO SCH (08:23)
[2018-08-17] MEDS: FLUoxetine HCL 20 MG CAPSULE PO SCH (08:23)
[2018-08-17] MEDS: FERROUS SULFATE 325 MG TABLET. PO SCH (08:23)
[2018-08-17 16:26] VITALS: BP 115/78
[2018-08-17] MEDS: DOXEPIN HCL 25 MG CAPSULE PO SCH (20:50)
[2018-08-17] MEDS: OLANZapine 2.5 MG TABLET PO SCH (20:50)
[2018-08-17] MEDS: ZOLPIDEM 5 MG TABLET. PO SCH (20:50)
--- NOTE | 2018-08-17 22:13 | PDOC ---
Exam Note: Niko Note: Please also refer to the separate dictated note~for this date of service dictated separately.~Patient seen individually. Discussed the patient with Nursing staff reviewed the chart.~Reviewed interim history and current functioning. Reviewed vital signs,~Labs/ Radiology~and current medications noted below. Continue current treatment with the changes noted in the dictated addendum note Assessment: Vital Signs: Vital Signs Date Time Temp Pulse Resp B/P (MAP) Pulse Ox O2 Delivery O2 Flow Rate FiO2 08/17/18 17:59 18 08/17/18 16:26 98.4 82 115/78 (90) 99 Room Air I&O Intake and Output 08/17/18 06:59 Intake Total 1080 ml Balance 1080 ml Intake Oral 1080 ml # Voids 1 Current Medications: Meds: Current Medications Acetaminophen (Tylenol) 650 mg PRN Q6HRS PRN PO PAIN / TEMP; Start 08/12/18 at 02:00 Multi-Ingredient Ointment (Analgesic [place]) 1 nicolas PRN QID PRN TP MUSCLE PAIN; Start 08/12/18 at 02:00 Al Hydroxide/Mg Hydroxide (Mylanta Plus Xs) 15 ml PRN AFTMEALHC PRN PO DYSPEPSIA; Start 08/12/18 at 02:00 Magnesium Hydroxide (Milk Of Magnesia) 2,400 mg PRN QHS PRN PO CONSTIPATION; Start 08/12/18 at 02:00 Aspirin (Madina Aspirin) 325 mg DAILY PO Last administered on 08/14/18at 08:28; Start 08/12/18 at 09:00; Stop 08/15/18 at 18:33; Status DC Vitamin D (Vitamin D3) 50,000 unit WEEKLY PO Last administered on 08/14/18at 08: 30; Start 08/14/18 at 09:00 Ferrous Sulfate (Feosol) 325 mg BID PO Last administered on 08/14/18at 08:29; Start 08/12/18 at 09:00; Stop 08/14/18 at 16:39; Status DC Oxycodone HCl (Roxicodone) 15 mg PRN Q6HRS PRN PO PAIN Last administered on 08/17at 16:47; Start 08/12/18 at 02:00 Alendronate Sodium (Fosamax) 70 mg WEEKLY PO Last administered on 08/14/18at 05: 21; Start 08/14/18 at 06:00 Celecoxib (CeleBREX) 200 mg BID PO Last administered on 08/17/18at 20:48; Start 08/12/18 at 09:00 Docusate Sodium (Colace) 100 mg BID PO ; Start 08/12/18 at 09:00; Stop 08/12/18 at 20:49; Status DC Doxepin HCl (SINEquan) 25 mg DAILY PO ; Start 08/12/18 at 09:00; Stop 08/12/18 at 20:49; Status DC Lorazepam (Ativan) 0.25 mg PRN Q2HR PRN PO ANXIETY / AGITATION; Start 08/12/18 at 02:00 Fluoxetine HCl (PROzac) 10 mg DAILY PO Last administered on 08/14/18at 08:29; Start 08/12/18 at 09:00; Stop 08/14/18 at 19:12; Status DC Olanzapine (ZyPREXA) 2.5 mg QHS PO Last administered on 08/16/18 20:25; Start 08/12/18 at 21:00; Stop 08/17/18 at 10:56; Status DC Zolpidem Tartrate (Ambien) 5 mg PRN QHS PRN PO INSOMNIA, MAY REPEAT X1; Start 08/12/18 at 02:15; Stop 08/12/18 at 20:22; Status DC Multi-Ingred Cream/Lotion/Oil/ Oint (Artificial Tears Eye Ointment) 1 nicolas PRN QHS PRN OU DRY EYE Last administered on 08/15/18 02:49; Start 08/12/18 at 03:00 Zolpidem Tartrate (Ambien) 5 mg HS PO Last administered on 08/17/18 20:50; Start 08/12/18 at 21:00 Doxepin HCl (SINEquan) 25 mg QHS PO Last administered on 08/17/18 20:50; Start 08/12/18 at 21:00 Zolpidem Tartrate (Ambien) 5 mg PRN QHS PRN PO CONTINUED INSOMNIA Last administered on 08/16/18 21:55; Start 08/12/18 at 20:30 Docusate Sodium (Colace) 100 mg PRN BID PRN PO CONSTIPATION; Start 08/12/18 at 21:00 Ferrous Sulfate (Feosol) 325 mg DAILY PO Last administered on 08/17/18at 08:23; Start 08/15/18 at 09:00 Fluoxetine HCl (PROzac) 20 mg DAILY PO Last administered on 08/17/18at 08:23; Start 08/15/18 at 09:00; Stop 08/17/18 at 10:56; Status DC Aspirin (Children'S Aspirin) 81 mg DAILYWBKFT PO Last administered on 08/17/18at 08:23; Start 08/16/18 at 08:00 Fluoxetine HCl (PROzac) 30 mg DAILY PO ; Start 08/18/18 at 09:00 Olanzapine (ZyPREXA) 5 mg QHS PO Last administered on 08/17/18at 20:50; Start 08/17/18 at 21:00 Active Scripts Active Reported Lubricant Eye Ointment (Mineral Oil/Petrolatum,White) 3.5 Gm Oint...g. 3.5 Gm OP PRN QHS PRN Oxycodone Hcl Immed.release (Oxycodone Hcl) 5 Mg Tablet 15 Mg PO PRN Q6HRS PRN Ambien (Zolpidem Tartrate) 10 Mg Tablet 10 Mg PO PRN QHS PRN Olanzapine 2.5 Mg Tablet 2.5 Mg PO QHS Prozac (Fluoxetine Hcl) 10 Mg Capsule 10 Mg PO DAILY Ferrous Sulfate 325 Mg Tablet 325 Mg PO BID Doxepin Hcl 25 Mg Capsule 25 Mg PO DAILY Colace (Docusate Sodium) 100 Mg Capsule 100 Mg PO BID D3-50 (Cholecalciferol (Vitamin D3)) 50,000 Unit Capsule 50,000 Unit PO WEEKLY Celebrex (Celecoxib) 200 Mg Capsule 200 Mg PO BID Aspirin 325 Mg Tablet 325 Mg PO DAILY Alendronate Sodium 70 Mg Tablet 70 Mg PO WEEKLY I have reviewed the current psychotropics carefully including drug interactions. Risk benefit ratio favors no change other than as noted in my dictated progress note. Diagnosis: Problems: (1) Anxiety disorder (2) Major depressive disorder, recurrent episode (3) Impulse control disorder LOKESH TUCKER MD Aug 17, 2018 22:13
[2018-08-17] MEDS: ZOLPIDEM 5 MG TABLET. PO PRN (23:00)
[2018-08-18] MEDS: oxyCODONE IR 5 MG TABLET PO PRN ×3 (04:45→18:15)
[2018-08-18 06:44] VITALS: BP 105/63
[2018-08-18] MEDS: ASPIRIN 81 MG TAB.CHEW PO SCH (08:12)
[2018-08-18] MEDS: FERROUS SULFATE 325 MG TABLET. PO SCH (08:12)
[2018-08-18] MEDS: CELECOXIB 100 MG CAPSULE PO SCH ×2 (08:13→20:26)
[2018-08-18] MEDS: FLUoxetine HCL 10 MG CAPSULE PO SCH (08:16)
[2018-08-18 15:32] VITALS: BP 134/74
[2018-08-18] MEDS: DOXEPIN HCL 25 MG CAPSULE PO SCH (20:25)
[2018-08-18] MEDS: OLANZapine 2.5 MG TABLET PO SCH (20:26)
[2018-08-18] MEDS: ZOLPIDEM 5 MG TABLET. PO SCH (20:27)
--- NOTE | 2018-08-18 20:44 | PN ---
DATE: 08/17/2018 PSYCHIATRIC PROGRESS NOTE This late entry 08/17/2018 covers elements not covered in my initial note. SUBJECTIVE: I met with the patient in the evening. The patient slept 5-1/4 hours previous night. Appetite 75%. She has had a very difficult day, previous night, with shower and states nursing staff insisted she have a shower, many complaints about this. She was staffed at a treatment team meeting with the entire team earlier in the day. I met with her in her room in the evening. REVIEW OF SYSTEMS: Ambulation impaired. No CV, , pulmonary, eye system symptoms on review. MENTAL STATUS EXAM: Reasonably oriented. Speech is coherent, abstraction fair, computation impaired, language function intact, attention span short. Mood and affect still somewhat withdrawn, depressed. No suicidal ideation. LABORATORY DATA: Reviewed. IMPRESSION: Unchanged from initial note. PLAN: Increase Prozac from 20 to 30 mg a day, Zyprexa from 2.5 mg at bedtime to 5 mg at bedtime for her persistent paranoia. Rest unchanged. Discussed disposition, living arrangements at length with her individually. MAN Natalia TUCKER MD DR: GREG/kyle JOB#: [id number] / [id number]
--- NOTE | 2018-08-18 22:33 | PDOC ---
Exam Note: Niko Note: Please also refer to the separate dictated note~for this date of service dictated separately.~Patient seen individually. Discussed the patient with Nursing staff reviewed the chart.~Reviewed interim history and current functioning. Reviewed vital signs,~Labs/ Radiology~and current medications noted below. Continue current treatment with the changes noted in the dictated addendum note Assessment: Vital Signs: Vital Signs Date Time Temp Pulse Resp B/P (MAP) Pulse Ox O2 Delivery O2 Flow Rate FiO2 08/18/18 19:15 97 08/18/18 15:32 97.0 74 18 134/74 (94) Room Air I&O Intake and Output 08/18/18 06:59 Intake Total 1080 ml Balance 1080 ml Intake Oral 1080 ml Current Medications: Meds: Current Medications Acetaminophen (Tylenol) 650 mg PRN Q6HRS PRN PO PAIN / TEMP; Start 08/12/18 at 02:00 Multi-Ingredient Ointment (Analgesic [place]) 1 nicolas PRN QID PRN TP MUSCLE PAIN; Start 08/12/18 at 02:00 Al Hydroxide/Mg Hydroxide (Mylanta Plus Xs) 15 ml PRN AFTMEALHC PRN PO DYSPEPSIA; Start 08/12/18 at 02:00 Magnesium Hydroxide (Milk Of Magnesia) 2,400 mg PRN QHS PRN PO CONSTIPATION; Start 08/12/18 at 02:00 Aspirin (Madina Aspirin) 325 mg DAILY PO Last administered on 08/14/18at 08:28; Start 08/12/18 at 09:00; Stop 08/15/18 at 18:33; Status DC Vitamin D (Vitamin D3) 50,000 unit WEEKLY PO Last administered on 08/14/18at 08: 30; Start 08/14/18 at 09:00 Ferrous Sulfate (Feosol) 325 mg BID PO Last administered on 08/14/18at 08:29; Start 08/12/18 at 09:00; Stop 08/14/18 at 16:39; Status DC Oxycodone HCl (Roxicodone) 15 mg PRN Q6HRS PRN PO PAIN Last administered on 08/18at 18:15; Start 08/12/18 at 02:00 Alendronate Sodium (Fosamax) 70 mg WEEKLY PO Last administered on 08/14/18at 05: 21; Start 08/14/18 at 06:00 Celecoxib (CeleBREX) 200 mg BID PO Last administered on 08/18/18 20:26; Start 08/12/18 at 09:00 Docusate Sodium (Colace) 100 mg BID PO ; Start 08/12/18 at 09:00; Stop 08/12/18 at 20:49; Status DC Doxepin HCl (SINEquan) 25 mg DAILY PO ; Start 08/12/18 at 09:00; Stop 08/12/18 at 20:49; Status DC Lorazepam (Ativan) 0.25 mg PRN Q2HR PRN PO ANXIETY / AGITATION; Start 08/12/18 at 02:00 Fluoxetine HCl (PROzac) 10 mg DAILY PO Last administered on 08/14/18 08:29; Start 08/12/18 at 09:00; Stop 08/14/18 at 19:12; Status DC Olanzapine (ZyPREXA) 2.5 mg QHS PO Last administered on 08/16/18 20:25; Start 08/12/18 at 21:00; Stop 08/17/18 at 10:56; Status DC Zolpidem Tartrate (Ambien) 5 mg PRN QHS PRN PO INSOMNIA, MAY REPEAT X1; Start 08/12/18 at 02:15; Stop 08/12/18 at 20:22; Status DC Multi-Ingred Cream/Lotion/Oil/ Oint (Artificial Tears Eye Ointment) 1 nicolas PRN QHS PRN OU DRY EYE Last administered on 08/15/18 02:49; Start 08/12/18 at 03:00 Zolpidem Tartrate (Ambien) 5 mg HS PO Last administered on 08/18/18 20:27; Start 08/12/18 at 21:00 Doxepin HCl (SINEquan) 25 mg QHS PO Last administered on 08/18/18 20:25; Start 08/12/18 at 21:00 Zolpidem Tartrate (Ambien) 5 mg PRN QHS PRN PO CONTINUED INSOMNIA Last administered on 08/17/18 23:00; Start 08/12/18 at 20:30 Docusate Sodium (Colace) 100 mg PRN BID PRN PO CONSTIPATION; Start 08/12/18 at 21:00 Ferrous Sulfate (Feosol) 325 mg DAILY PO Last administered on 08/18/18 08:12; Start 08/15/18 at 09:00 Fluoxetine HCl (PROzac) 20 mg DAILY PO Last administered on 08/17/18 08:23; Start 08/15/18 at 09:00; Stop 08/17/18 at 10:56; Status DC Aspirin (Children'S Aspirin) 81 mg DAILYWBKFT PO Last administered on 08/18/18 08:12; Start 08/16/18 at 08:00 Fluoxetine HCl (PROzac) 30 mg DAILY PO Last administered on 08/18/18 08:16; Start 08/18/18 at 09:00 Olanzapine (ZyPREXA) 5 mg QHS PO Last administered on 08/18/18 20:26; Start 08/17/18 at 21:00 Active Scripts Active Reported Lubricant Eye Ointment (Mineral Oil/Petrolatum,White) 3.5 Gm Oint...g. 3.5 Gm OP PRN QHS PRN Oxycodone Hcl Immed.release (Oxycodone Hcl) 5 Mg Tablet 15 Mg PO PRN Q6HRS PRN Ambien (Zolpidem Tartrate) 10 Mg Tablet 10 Mg PO PRN QHS PRN Olanzapine 2.5 Mg Tablet 2.5 Mg PO QHS Prozac (Fluoxetine Hcl) 10 Mg Capsule 10 Mg PO DAILY Ferrous Sulfate 325 Mg Tablet 325 Mg PO BID Doxepin Hcl 25 Mg Capsule 25 Mg PO DAILY Colace (Docusate Sodium) 100 Mg Capsule 100 Mg PO BID D3-50 (Cholecalciferol (Vitamin D3)) 50,000 Unit Capsule 50,000 Unit PO WEEKLY Celebrex (Celecoxib) 200 Mg Capsule 200 Mg PO BID Aspirin 325 Mg Tablet 325 Mg PO DAILY Alendronate Sodium 70 Mg Tablet 70 Mg PO WEEKLY I have reviewed the current psychotropics carefully including drug interactions. Risk benefit ratio favors no change other than as noted in my dictated progress note. Diagnosis: Problems: (1) Anxiety disorder (2) Major depressive disorder, recurrent episode (3) Impulse control disorder LOKESH TUCKER MD Aug 18, 2018 22:33
[2018-08-19] MEDS: oxyCODONE IR 5 MG TABLET PO PRN ×4 (01:11→19:16)
--- NOTE | 2018-08-19 04:19 | PN ---
DATE: 08/16/2018 PSYCHIATRIC PROGRESS NOTE This late entry 08/16/2018 covers elements not covered in my initial note. SUBJECTIVE: I met with the patient in the evening in her room at some length. She slept 5 hours previous night. Denies active suicidal ideation, remains somewhat obsessive, fixated on a person that she has misplaced some money. Nursing staff, nurse culture manager are looking into this. REVIEW OF SYSTEMS: Ambulates with walker. No CV, , pulmonary, eye system symptoms on review. MENTAL STATUS EXAM: Oriented reasonably. Speech is coherent, abstraction fair, computation somewhat impaired, language function intact, attention span short. Mood and affect still somewhat withdrawn, but better. LABORATORY DATA: Reviewed. IMPRESSION: Unchanged from initial note. PLAN: No change from initial note. She saw a news item that there is a new approval for antidepressant and very keen to have this intranasal preparation as an outpatient. Continue current psychotropics. We may consider increasing Prozac in due course. LOKESH TUCKER MD DR: GREG/kyle JOB#: [id number] / [id number]
[2018-08-19 05:48] VITALS: BP 142/94
[2018-08-19] MEDS: ASPIRIN 81 MG TAB.CHEW PO SCH (08:33)
[2018-08-19] MEDS: FERROUS SULFATE 325 MG TABLET. PO SCH (08:33)
[2018-08-19] MEDS: FLUoxetine HCL 10 MG CAPSULE PO SCH (08:33)
[2018-08-19] MEDS: CELECOXIB 100 MG CAPSULE PO SCH ×2 (08:33→19:16)
[2018-08-19 15:32] VITALS: BP 111/72
[2018-08-19] MEDS: DOXEPIN HCL 25 MG CAPSULE PO SCH (19:15)
[2018-08-19] MEDS: OLANZapine 2.5 MG TABLET PO SCH (19:15)
[2018-08-19] MEDS: ZOLPIDEM 5 MG TABLET. PO SCH (19:16)
[2018-08-19] MEDS: ZOLPIDEM 5 MG TABLET. PO PRN (20:35)
--- NOTE | 2018-08-19 23:19 | PN ---
DATE: 08/19/2018 SUBJECTIVE: The patient seen today, met with the staff, chart reviewed. The patient continued to be depressed, complains of chronic pain in both knees, also not able to sleep. The patient states she has been hospitalized twice to [facility] for depression, also having suicidal thoughts and plans. The patient claims that she is planning to have ECT as an outpatient following discharge. OBSERVATION: Temperature 97.8, blood pressure 172/94, pulse 84, respirations 16, and O2 sat 94%. Slept about 6 hours last night. Appetite is fair. The patient's behavior is appropriate most of the time, but is very demanding, having some mood swings, irritability. MEDICATIONS: Reviewed. Currently on Prozac 30 mg daily, olanzapine 5 mg at night, doxepin 25 mg at night, Ambien 5 mg at night, and lorazepam 0.25 mg q.2 hours p.r.n. LABORATORY DATA: The patient's lab reviewed. Elevated cholesterol, LDL. ASSESSMENT: 1. Major depressive disorder, recurrent. 2. Generalized anxiety disorder. 3. Rule out bipolar disorder. PLAN: Continue with the treatment. KESHIA HONG MD DR: KHAI/kyle JOB#: [id number] / [id number]
[2018-08-20] MEDS: oxyCODONE IR 5 MG TABLET PO PRN ×4 (01:38→19:51)
[2018-08-20 06:15] VITALS: BP 101/63
[2018-08-20] MEDS: ASPIRIN 81 MG TAB.CHEW PO SCH (09:12)
[2018-08-20] MEDS: FLUoxetine HCL 10 MG CAPSULE PO SCH (09:12)
[2018-08-20] MEDS: CELECOXIB 100 MG CAPSULE PO SCH ×2 (09:12→19:50)
[2018-08-20] MEDS: FERROUS SULFATE 325 MG TABLET. PO SCH (09:12)
[2018-08-20 16:24] VITALS: BP 110/71
[2018-08-20] MEDS: ZOLPIDEM 5 MG TABLET. PO SCH (19:50)
[2018-08-20] MEDS: OLANZapine 2.5 MG TABLET PO SCH (19:54)
[2018-08-20] MEDS: DOXEPIN HCL 25 MG CAPSULE PO SCH (19:54)
--- NOTE | 2018-08-21 02:19 | PN ---
DATE: 08/20/2018 SUBJECTIVE: The patient was seen today, met with the staff, chart reviewed. The patient's behavior remains the same. The patient is constantly seeking medications. She is receiving Ambien at night and asking for repeat dose. The patient apparently wakes up even after taking Ambien at night. The patient continues to have problems with the depression. The patient is hoping to have ECT treatment following discharge as an outpatient. OBSERVATION: Vital signs are stable. The patient's appetite is good. Sleep average about 6-7 hours. The patient most of the time behaves appropriately. Had periods where she becomes irritable, cee, demanding, mood swings. MEDICATIONS: Her current medications include Prozac 30 mg daily, olanzapine 5 mg at night, doxepin 25 mg at night, Ambien 5 mg at night, and lorazepam 0.25 mg q. 2 hours p.r.n. ASSESSMENT: 1. Major depressive disorder, recurrent. 2. Generalized anxiety disorder. PLAN: To continue with the treatment. KESHIA HONG MD DR: KHAI/kyle JOB#: [id number] / [id number]
[2018-08-21] MEDS: oxyCODONE IR 5 MG TABLET PO PRN ×4 (02:24→21:37)
--- NOTE | 2018-08-21 03:22 | PN ---
DATE: 08/18/2018 PSYCHIATRIC PROGRESS NOTE This late entry for 08/18/2018 not covered in my initial note. SUBJECTIVE: I met with the patient at length in her room. She has been quite medication seeking for her pain pills according to nursing staff. She has been holding sugar packet staff. REVIEW OF SYSTEMS: Positive for knee pain. No CV, , pulmonary, eye, ENT system symptoms on review. MENTAL STATUS EXAM: The patient is reasonably oriented. Speech has some latency, coherent. Abstraction fair, computation impaired, language function intact, attention span short. Mood and affect somewhat anxious, labile at times, withdrawn. LABORATORY DATA: Reviewed. IMPRESSION: Unchanged from initial note. PLAN: No change from initial note. We again discussed intranasal or intravenous ketamine transcranial magnetic stimulation treatment versus ECT, mediated in which case the above treatments may not be valid. We have increased the Prozac, we will see how she does, and then decide. LOKESH TUCKER MD DR: GREG/kyle JOB#: [id number] / [id number]
[2018-08-21] MEDS: MINERAL OIL/PETROLATUM,WHITE OPHTH OINT 3.5GM TUBE. OU PRN (03:52)
[2018-08-21 06:07] VITALS: BP 98/59
[2018-08-21 07:28] LABS: BASO # 0.1 x10^3/uL (0.0-0.2); BASO % 2 % (0-3); EOS # 0.3 x10^3/uL (0.0-0.7); EOS % 8 % (0-3); HEMATOCRIT 30.9 % (36.0-47.0); HEMOGLOBIN 10.1 g/dL (12.0-15.5); LYMPH # 1.4 x10^3/uL (1.0-4.8); LYMPH % 34 % (24-48); MEAN CORPUSCULAR HEMOGLOBIN 30 pg (25-35); MEAN CORPUSCULAR HGB CONC 33 g/dL (31-37); MEAN CORPUSCULAR VOLUME 93 fL (79-100); MONO # 0.6 x10^3/uL (0.0-1.1); MONO % 15 % (0-9); NEUT # 1.7 x10^3uL (1.8-7.7); NEUT % 41 % (31-73); PLATELET COUNT 244 x10^3/uL (140-400); RED BLOOD COUNT 3.32 x10^6/uL (3.50-5.40); RED CELL DISTRIBUTION WIDTH 17.3 % (11.5-14.5); WHITE BLOOD COUNT 4.1 x10^3/uL (4.0-11.0)
[2018-08-21 07:38] LABS: ALBUMIN 2.8 g/dL (3.4-5.0); ALBUMIN/GLOBULIN RATIO 0.8 (1.0-1.7); CALCIUM 8.4 mg/dL (8.5-10.1); CREATININE 1.2 mg/dL (0.6-1.0); POTASSIUM 4.5 mmol/L (3.5-5.1); TOTAL BILIRUBIN 0.3 mg/dL (0.2-1.0); TOTAL PROTEIN 6.2 g/dL (6.4-8.2)
[2018-08-21] MEDS: FLUoxetine HCL 10 MG CAPSULE PO SCH (08:32)
[2018-08-21] MEDS: CELECOXIB 100 MG CAPSULE PO SCH ×2 (08:32→21:34)
[2018-08-21] MEDS: ALENDRONATE SODIUM 35 MG TABLET PO SCH (08:33)
[2018-08-21] MEDS: ASPIRIN 81 MG TAB.CHEW PO SCH (08:33)
[2018-08-21] MEDS: FERROUS SULFATE 325 MG TABLET. PO SCH (08:33)
[2018-08-21] MEDS: CHOLECALCIFEROL (VITAMIN D3) 50,000 UNIT CAPSULE PO SCH (08:35)
[2018-08-21 16:26] VITALS: BP 150/95
[2018-08-21] MEDS: DOXEPIN HCL 25 MG CAPSULE PO SCH (21:34)
[2018-08-21] MEDS: ZOLPIDEM 5 MG TABLET. PO SCH (21:35)
[2018-08-21] MEDS: OLANZapine 2.5 MG TABLET PO SCH (21:35)
[2018-08-21] MEDS: ZOLPIDEM 5 MG TABLET. PO PRN (23:02)
--- NOTE | 2018-08-22 03:14 | PN ---
DATE: 08/21/2018 SUBJECTIVE: The patient was seen today, met with the staff, chart reviewed. The patient is constantly complaining about her stay here, constantly seeking Ambien for sleep, multiple physical complaints, also demanding. OBSERVATION: VITAL SIGNS: Temperature 98.1, blood pressure 124/73, pulse 76, respirations 20, O2 sat 96%. Slept about 6 hours last night. Her appetite improved. MEDICATIONS: The patient's current medications include Prozac 30 mg daily, olanzapine 5 mg at night, doxepin 25 mg at night, Ambien 5 mg at night and lorazepam 0.25 mg q. 2 hours p.r.n. The patient is not having any side effects. No major physical complaints. ASSESSMENT: 1. Major depressive disorder, recurrent. 2. Generalized anxiety disorder. PLAN: To continue with the treatment. The patient is planned for discharge on 08/24/2018 and will be returning home. KESHIA HONG MD DR: KHAI/kyle JOB#: [id number] / [id number]
[2018-08-22] MEDS: oxyCODONE IR 5 MG TABLET PO PRN ×3 (05:16→18:14)
[2018-08-22] MEDS: MINERAL OIL/PETROLATUM,WHITE OPHTH OINT 3.5GM TUBE. OU PRN (05:16)
[2018-08-22 06:30] VITALS: BP 109/71
[2018-08-22] MEDS: CELECOXIB 100 MG CAPSULE PO SCH ×2 (09:21→20:50)
[2018-08-22] MEDS: ASPIRIN 81 MG TAB.CHEW PO SCH (09:21)
[2018-08-22] MEDS: FERROUS SULFATE 325 MG TABLET. PO SCH (09:21)
[2018-08-22] MEDS: FLUoxetine HCL 10 MG CAPSULE PO SCH (09:21)
[2018-08-22 16:22] VITALS: BP 149/87
[2018-08-22] MEDS: DOXEPIN HCL 25 MG CAPSULE PO SCH (20:50)
[2018-08-22] MEDS: ZOLPIDEM 5 MG TABLET. PO SCH (20:50)
[2018-08-22] MEDS: OLANZapine 2.5 MG TABLET PO SCH (20:51)
[2018-08-22] MEDS: ZOLPIDEM 5 MG TABLET. PO PRN (21:15)
[2018-08-23] MEDS: oxyCODONE IR 5 MG TABLET PO PRN ×4 (00:57→19:40)
--- NOTE | 2018-08-23 02:34 | PN ---
DATE: 08/22/2018 SUBJECTIVE: The patient was seen today, met with the staff, chart reviewed. The patient continues to show improvement. The patient is still negative with the thinking, focused on anxiety, fears. The patient also drug seeking, asking for Ambien for sleep every night. OBSERVATION: VITAL SIGNS: Temperature 97.7, blood pressure 149/82, pulse 80, respirations 18, O2 sat 99%. MEDICATIONS: Reviewed. She is on Prozac 30 mg daily, olanzapine 5 mg at night, doxepin 25 mg at night and Ambien 5 mg at night and repeat 5 mg as needed and lorazepam 0.25 mg q. 2 hours p.r.n. The patient is not having any major physical complaints except for pain and no side effects. ASSESSMENT: 1. Major depressive disorder, recurrent. 2. Generalized anxiety disorder. PLAN: Continue with the treatment. Plan for discharge on 08/24/2018. KESHIA HONG MD DR: KHAI/kyle JOB#: [id number] / [id number]
[2018-08-23 06:08] VITALS: BP 108/66
[2018-08-23] MEDS: MINERAL OIL/PETROLATUM,WHITE OPHTH OINT 3.5GM TUBE. OU PRN (06:54)
[2018-08-23] MEDS: FERROUS SULFATE 325 MG TABLET. PO SCH (08:51)
[2018-08-23] MEDS: ASPIRIN 81 MG TAB.CHEW PO SCH (08:51)
[2018-08-23] MEDS: CELECOXIB 100 MG CAPSULE PO SCH ×2 (08:52→19:38)
[2018-08-23] MEDS: FLUoxetine HCL 10 MG CAPSULE PO SCH (08:52)
[2018-08-23 17:29] VITALS: BP 138/82
[2018-08-23] MEDS: OLANZapine 2.5 MG TABLET PO SCH (19:38)
[2018-08-23] MEDS: DOXEPIN HCL 25 MG CAPSULE PO SCH (19:38)
[2018-08-23] MEDS: ZOLPIDEM 5 MG TABLET. PO SCH (19:39)
[2018-08-23] MEDS: ZOLPIDEM 5 MG TABLET. PO PRN (20:48)
[2018-08-24] MEDS: oxyCODONE IR 5 MG TABLET PO PRN ×4 (02:08→21:05)
[2018-08-24 07:00] VITALS: BP 135/93
[2018-08-24] MEDS: CELECOXIB 100 MG CAPSULE PO SCH ×2 (08:46→19:32)
[2018-08-24] MEDS: FLUoxetine HCL 10 MG CAPSULE PO SCH (08:47)
[2018-08-24] MEDS: ASPIRIN 81 MG TAB.CHEW PO SCH (08:47)
[2018-08-24] MEDS: FERROUS SULFATE 325 MG TABLET. PO SCH (08:47)
[2018-08-24 16:31] VITALS: BP 145/85
[2018-08-24] MEDS: DOXEPIN HCL 25 MG CAPSULE PO SCH (19:33)
[2018-08-24] MEDS: OLANZapine 2.5 MG TABLET PO SCH (19:33)
[2018-08-24] MEDS: ZOLPIDEM 5 MG TABLET. PO SCH (19:34)
[2018-08-24] MEDS: ZOLPIDEM 5 MG TABLET. PO PRN (21:04)
[2018-08-24] MEDS: MINERAL OIL/PETROLATUM,WHITE OPHTH OINT 3.5GM TUBE. OU PRN (21:05)
[2018-08-25] MEDS ORDERED: ACET325T21 PO (01:34)
[2018-08-25] MEDS ORDERED: ASPI-630 PO (01:34)
[2018-08-25] MEDS ORDERED: MAG355OR17 PO (01:35)
[2018-08-25] MEDS ORDERED: MAGN2400 PO (01:35)
[2018-08-25] MEDS ORDERED: ZOLP5TAB5 PO ×2 (01:36)
[2018-08-25] MEDS ORDERED: METH29OI TP (01:36)
[2018-08-25] MEDS: oxyCODONE IR 5 MG TABLET PO PRN ×3 (03:24→15:26)
[2018-08-25 06:04] VITALS: BP 159/79
[2018-08-25] MEDS: FLUoxetine HCL 10 MG CAPSULE PO SCH (09:12)
[2018-08-25] MEDS: ASPIRIN 81 MG TAB.CHEW PO SCH (09:12)
[2018-08-25] MEDS: CELECOXIB 100 MG CAPSULE PO SCH (09:12)
[2018-08-25] MEDS: FERROUS SULFATE 325 MG TABLET. PO SCH (09:12)
--- NOTE | 2018-08-25 17:19 | DS ---
DATE OF DISCHARGE: 08/25/2018 DISCHARGE DIAGNOSES: AXIS I: 1. Major depressive disorder, recurrent. 2. Generalized anxiety disorder, unspecified. AXIS II: None. AXIS III: Hypertension, back pain, osteoarthritis, anemia, osteopenia, chronic pain, history of CVA, CHF, bilateral knee replacement. REASON FOR ADMISSION: This 73-year-old female, who was [facility] from [facility] where she presented there from home with symptoms of depression, suicidal ideation with a plan to walk into traffic or pay someone to kill her. The patient also failed outpatient treatment. HISTORY OF PRESENT ILLNESS: The patient lives alone at home in her apartment and the patient is having multiple physical complaints, feeling hopeless and helpless or worthless and also constantly contemplating suicide. The patient also frequent visits to Emergency Room. She has a long history of depression and past psychiatric hospitalization at [facility]. The patient overall able to take care of her needs at home. The patient was able to drive until recently. The patient states she has chronic insomnia, feeling paranoia sometimes, also feeling hopeless and helpless and also admits to having mood swings. HOSPITAL COURSE: The patient had a physical exam, routine lab work including CBC, chem profile, urinalysis. The patient's lab reviewed. Calcium level of 8.4, creatinine 1.2, BUN 23. The patient did not have any major abnormalities. The patient was involved in the program including individual therapy, group therapy, activity therapy. The patient is constantly complaining of depression, but the patient did not exhibit any vegetative symptoms. The patient's sleep improved. Appetite good. The patient was able to interact with the staff. The patient also for pain after leaving here she wants to find out whether she could get some outpatient treatment including ECT. The patient apparently has seen several psychiatrists in the past. The patient was on Prozac 30 mg daily, olanzapine 5 mg at night, aspirin 81 mg daily, ferrous sulfate 325 mg daily, doxepin 25 mg at night, Ambien 5 mg at night, Celebrex 200 mg b.i.d., lorazepam 0.25 mg p.r.n. q.2 hours. The patient did not have any major side effects. AFTERCARE PLAN: The patient at the time of discharge stable medically. The patient was not expressing any suicidal or homicidal thoughts. The patient will return home. Continue follow up with the primary care doctor and also she will be seeing a psychiatrist for medication followup. KESHIA HONG MD DR: KHAI/kyle JOB#: [id number] / [id number]
== END 2018-08-25 15:40 | disposition home or self-care (01) | DRG 885 ==
LOC: GEROPSY 01:47
PROVIDERS: ADMIT Psychiatry & Neurology Psychiatry; ATTEND Psychiatry & Neurology Psychiatry
DX: F33.9 Major depressive disorder, recurrent, unspecified (principal); R45.851 Suicidal ideations; I11.0 Hypertensive heart disease with heart failure; I50.9 Heart failure, unspecified; D64.9 Anemia, unspecified; Z96.653 Presence of artificial knee joint, bilateral; G89.29 Other chronic pain; F63.9 Impulse disorder, unspecified; F41.1 Generalized anxiety disorder; M15.9 Polyosteoarthritis, unspecified; M81.0 Age-related osteoporosis without current pathological fracture; F51.04 Psychophysiologic insomnia; Z86.73 Personal history of transient ischemic attack (TIA), and cerebral infarction without residual deficits; Z88.1 Allergy status to other antibiotic agents; Z88.2 Allergy status to sulfonamides; Z88.8 Allergy status to other drugs, medicaments and biological substances; Z79.899 Other long term (current) drug therapy; Z79.82 Long term (current) use of aspirin; Z76.5 Malingerer [conscious simulation]; Z59.9 Problem related to housing and economic circumstances, unspecified
CPT/HCPCS: 36415; 80053; 80061; 82306; 83036; 83540; 83550; 83735; 84436; 84443; 84480; 85025; 86592; 97110; 97116